=== PATIENT | female | born 1980 | race Caucasian/White ===

== ENCOUNTER 2017-12-16 19:19 | Emergency (ER) | payer BC, OTHER ==
[2017-12-16 19:55] VITALS: BP 126/88; PULSE 69; RESP 18; TEMP 98.3; O2SAT 99
[2017-12-16 21:27] LABS: SQUAMOUS EPITHIAL 4 /hpf (0-5); URINE BILIRUBIN NEGATIVE (NEGATIVE); URINE BLOOD 2+ (NEGATIVE); URINE CLARITY Clear (Clear); URINE COLOR Yellow (YELLOW); URINE GLUCOSE (UA) NORMAL (Normal); URINE HYALINE CAST 0-2 /lpf (0-2); URINE LEUKOCYTE ESTERASE NEG Leu/uL (Negative); URINE PROTEIN NEGATIVE (NEGATIVE); URINE UROBILINOGEN NORMAL mg/dL (0.2-1.0)
[2017-12-16 21:34] LABS: HCG,QUALITATIVE URINE NEGATIVE (NEGATIVE)
--- NOTE | 2017-12-16 22:15 | C.PDOC ---
History Of Present Illness 36 year old female presents to the ED complaining of vaginal spotting onset today. Patient reports symptoms began after lifting something heavy. She denies associated abdominal pain, trauma, vomiting, weakness, urinary symptoms, or vaginal discharge. LMP was 12/03/17. Time Seen by Provider: 12/16/17 21:12 Chief Complaint (Nursing): Female Genitourinary History Per: Patient History/Exam Limitations: no limitations Onset/Duration Of Symptoms: Days Current Symptoms Are (Timing): Still Present Past Medical History Reviewed: Historical Data, Nursing Documentation, Vital Signs Vital Signs: Last Vital Signs Temp 98.3 F 12/16/17 19:52 Pulse 69 12/16/17 19:52 Resp 18 12/16/17 19:52 BP 126/88 12/16/17 19:52 Pulse Ox 99 12/17/17 12:19 - Medical History PMH: Anemia, Gastritis Denies: Chronic Kidney Disease Surgical History: Endoscopy, - [facility] Procedures ESOPHAGOGASTRODUODENOSCOPY [EGD] W/CLOSED BIOPSY (12/29/13) LAPAROSCOPIC ROBOTIC ASSISTED PROCEDURE (11/24/14) LAPAROSCOPIC VERTICAL (SLEEVE) GASTRECTOMY (11/24/14) OTHER ENDOSCOPY OF SM INTEST (11/24/14) Family History: States: Unknown Family Hx - Social History Hx Tobacco Use: Yes Hx Alcohol Use: Yes (socially,very seldom) Hx Substance Use: No - Immunization History Hx Tetanus Toxoid Vaccination: No Hx Influenza Vaccination: No Hx Pneumococcal Vaccination: No Review Of Systems Except As Marked, All Systems Reviewed And Found Negative. Gastrointestinal: Negative for: Vomiting, Abdominal Pain Genitourinary: Positive for: Vaginal Bleeding. Negative for: Dysuria, Frequency , Incontinence, Vaginal Discharge Physical Exam - Physical Exam Appears: Non-toxic, No Acute Distress Skin: Normal Color, Warm, Dry Head: Atraumatic, Normacephalic Eye(s): bilateral: Normal Inspection, PERRL, EOMI Nose: Normal Oral Mucosa: Moist Cardiovascular: Rhythm Regular Respiratory: Normal Breath Sounds Gastrointestinal/Abdominal: Bowel Sounds (positive), Soft, No Tenderness, No Guarding Back: Normal Inspection, No CVA Tenderness Pelvic: Other (pt refused- stated bleeding resolved) Neurological/Psych: Oriented x3, Normal Speech Gait: Steady ED Course And Treatment - Laboratory Results Urine POC: Negative O2 Sat by Pulse Oximetry: 99 (RA) Pulse Ox Interpretation: Normal Progress Note: Urine pregnancyand UA ordered and reviewed and hcg is negative. Patient is stable for d/c home. Advised to follow up with SOCIAL SECRETARY for further evaluation. Disposition Counseled Patient/Family Regarding: Diagnosis, Need For Followup, Rx Given - [facility]position [facility] Disposition: HOME/ ROUTINE Disposition Time: 22:12 Condition: STABLE Additional Instructions: Please follow up with your OB Please follow up with OB /SECRETARY RECEPTIONIST Return to ER if worse Forms: General Discharge Instructions - POA Present On Arrival: None - Clinical Impression Clinical Impression: Vaginal spotting - PA / COLD PRESS OPERATOR / Resident Statement MD/DO has reviewed & agrees with the documentation as recorded. - Scribe Statement The provider has reviewed the documentation as recorded by the Scribe (Chelsy Camacho) All medical record entries made by the Scribe were at my direction and personally dictated by me. I have reviewed the chart and agree that the record accurately reflects my personal performance of the history, physical exam, medical decision making, and the department course for this patient. I have also personally directed, reviewed, and agree with the discharge instructions and disposition.
== END 2017-12-16 22:19 | disposition home or self-care (01) ==
LOC: C.ER 19:19
DX: N93.9 Abnormal uterine and vaginal bleeding, unspecified (principal); Z72.0 Tobacco use

== ENCOUNTER 2018-06-13 07:03 | Day surgery (SDC) | payer BC ==
[2018-06-04 11:24] VITALS: BMI 27.8
[2018-06-13] MEDS ORDERED: ceFAZolin 1 gm FROZEN Premix 1 GM/50 ML ML IVPB ONE (07:18)
[2018-06-13] MEDS ORDERED: Lidocaine/Epinephrine 1% 1:100000 10 ML IJ ONE (07:18)
[2018-06-13] MEDS ORDERED: EPINEPHrine 1:1000 Nasal Sol(30mL) ONE (07:18)
[2018-06-13] MEDS ORDERED: Acetaminophen-Codeine 300/30 mg Tab PO PRN (08:17)
[2018-06-13] MEDS ORDERED: Dextrose 5%/0.45% NS 1,000 ML IV SCH (08:30)
[2018-06-13] MEDS ORDERED: Midazolam 2 MG/2 ML VIAL ONE (08:43)
[2018-06-13] MEDS ORDERED: Propofol 10 mg/ml Inj (20 ML) ONE (08:43)
[2018-06-13] MEDS ORDERED: Rocuronium 10 mg/ml (5 ml) ONE (09:15)
[2018-06-13] MEDS ORDERED: Esmolol 100 mg/10ml Inj IV ONE (09:31)
[2018-06-13] MEDS ORDERED: Phenylephrine 10 mg/ml Inj ONE (09:31)
[2018-06-13] MEDS ORDERED: HYDROmorphone 0.5 mg/0.5 ml ISec IVP PRN (09:51)
[2018-06-13] MEDS ORDERED: Neostigmine Methylsulfate 3mg/3ml Syringe IV ONE (09:57)
[2018-06-13] MEDS: Midazolam 2 MG/2 ML VIAL IVP ONE ×2 (11:02→11:05)
[2018-06-13 12:04] VITALS: BP 130/71; PULSE 70; RESP 18; TEMP 98; O2SAT 100
--- NOTE | 2018-06-13 21:15 | OP ---
PROCEDURE DATE: 06/13/2018 PREOPERATIVE DIAGNOSES: Sinusitis, large turbinates. POSTOPERATIVE DIAGNOSES: Sinusitis, large turbinates. PROCEDURE: Endoscopic bilateral maxillary antrostomy, endoscopic bilateral ethmoidectomy, endoscopic bilateral inferior turbinate reduction. SIGNIFICANT FINDINGS: Sinusitis changes noted at the ethmoid sinuses, maxillary antrum stenosed on both sides, large inferior turbinates. DESCRIPTION OF PROCEDURE: The patient was brought into the room, and placed in supine position. Anesthesia was initiated through an ET tube. Adrenaline-soaked pledgets were inserted into the nasal cavity, remained there for 5 minutes and removed. The patient was draped in the usual manner. Navigation was set up and used throughout the case in order to ensure the skull base and orbit were not entered. A 0 degree scope was inserted in the nasal cavity. The inferior turbinates were noted to be enlarged, they were reduced in size using scissors going from an inferior to superior, anterior to posterior direction on both sides, first on the left and then on the right. Next, the middle turbinates were injected with lidocaine with epinephrine on both sides. Attention was turned to the left. The middle turbinate was medialized. The uncinate process was medialized using a [place] elevator and removed using forceps. The debrider was used to enter the ethmoid bulla inferomedially going posteriorly to the basal lamella, then anterior and superiorly until the ethmoid bulla was removed. The basal lamella was entered. Posterior ethmoid cells were entered and opened. The skull base was identified and followed anteriorly all the way to the area of the anterior ethmoid air cells. Next, a curved suction hooked up to navigation was used to locate the maxillary antrum, which was noted to be stenosed and opened using forceps. Bleeding was controlled using adrenaline-soaked pledgets and suction cautery. Attention was turned to the other side. The middle turbinate was medialized and the [place] elevator was used to medialize the uncinate process and removed using forceps. A debrider was used to enter the ethmoid bulla inferomedially, going posteriorly to the basal lamella, then anteriorly and superiorly until the ethmoid bulla was removed. The basal lamella was entered. Posterior ethmoid cells were entered and opened. Skull base was identified and followed anteriorly all the way to the area of the anterior ethmoid air cells. Curved suction hooked up to navigation was used to locate the maxillary antrum, which was noted to be stenosed and opened using forceps. Bleeding was controlled using suction cautery and adrenaline-soaked pledgets. Stents were placed. The patient was taken off anesthesia and taken to recovery room in stable manner. Reinaldo Kat MD
== END 2018-06-13 13:15 | disposition home or self-care (01) ==
LOC: C.SDS 07:03
PROVIDERS: ATTEND Otolaryngology
DX: J34.2 Deviated nasal septum (principal); J32.0 Chronic maxillary sinusitis; J32.2 Chronic ethmoidal sinusitis; J35.01 Chronic tonsillitis; J32.9 Chronic sinusitis, unspecified
CPT/HCPCS: 30801; 31255; 31256; 88304; J0690; J1170; J2250; J2370; J2704; J2710; J3010